=== PATIENT | female | born 1990 | race African-American/Black ===

== ENCOUNTER 2019-02-24 15:53 | Emergency (ER) | payer OTHER, SELFPAY ==
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
[2019-02-24] MEDS ORDERED: HYDROcodone/Acetaminophen 5/325 mg Tablet ONE (17:34)
[2019-02-24] MEDS ORDERED: Lidocaine 1% w/Epinephrine 1:100K 20 ML VIAL ONE (17:34)
[2019-02-24] MEDS ORDERED: Adacel (T-DAP) 0.5 ML SYRINGE ONE (17:34)
[2019-02-24] MEDS ORDERED: Lidocaine 1% (PF) 30 ML VIAL ONE (18:51)
[2019-02-24] MEDS ORDERED: Bacitracin 1 PK ONE (19:43)
[2019-02-24] MEDS ORDERED: Bacitracin Zinc Ointment 30 gm TUBE TOP SCH (20:00)
== END 2019-02-24 20:58 | disposition home or self-care (01) ==
LOC: ERS 15:53
DX: S01.01XA Laceration without foreign body of scalp, initial encounter (principal); S51.012A Laceration without foreign body of left elbow, initial encounter; S61.411A Laceration without foreign body of right hand, initial encounter; F31.9 Bipolar disorder, unspecified; Z23 Encounter for immunization; Y04.8XXA Assault by other bodily force, initial encounter
CPT/HCPCS: 12004; 12034; 70450; 90471; 90715; J2001